=== PATIENT | male | born 1935 | race Caucasian/White ===

== ENCOUNTER 2016-07-15 07:10 | Outpatient (CLI) | payer MEDICARE, OTHER | END 2016-07-15 07:11 | disposition home or self-care (01) | DX: Z79.01 Long term (current) use of anticoagulants (principal); I48.91 Unspecified atrial fibrillation ==

== ENCOUNTER 2016-07-22 07:06 | Outpatient (CLI) | payer MEDICARE, OTHER | END 2016-07-22 07:07 | disposition home or self-care (01) | DX: I48.91 Unspecified atrial fibrillation (principal); Z79.01 Long term (current) use of anticoagulants ==

== ENCOUNTER 2016-07-29 07:01 | Outpatient (CLI) | payer MEDICARE, OTHER | END 2016-07-29 07:02 | disposition home or self-care (01) | DX: I48.91 Unspecified atrial fibrillation (principal); Z79.01 Long term (current) use of anticoagulants ==

== ENCOUNTER 2016-08-12 07:01 | Outpatient (CLI) | payer MEDICARE, OTHER | END 2016-08-12 07:02 | disposition home or self-care (01) | DX: I48.91 Unspecified atrial fibrillation (principal); Z79.01 Long term (current) use of anticoagulants ==

== ENCOUNTER 2016-08-26 07:04 | Outpatient (CLI) | payer MEDICARE, OTHER | END 2016-08-26 07:05 | disposition home or self-care (01) | DX: Z79.01 Long term (current) use of anticoagulants (principal); I48.91 Unspecified atrial fibrillation ==

== ENCOUNTER 2016-09-23 07:04 | Outpatient (CLI) | payer MEDICARE, OTHER | END 2016-09-23 07:05 | disposition home or self-care (01) | DX: I48.91 Unspecified atrial fibrillation (principal); Z79.01 Long term (current) use of anticoagulants ==

== ENCOUNTER 2016-10-07 07:02 | Outpatient (CLI) | payer MEDICARE, OTHER | END 2016-10-07 07:03 | disposition home or self-care (01) | DX: I48.91 Unspecified atrial fibrillation (principal); Z79.01 Long term (current) use of anticoagulants ==

== ENCOUNTER 2016-11-04 07:03 | Outpatient (CLI) | payer MEDICARE, OTHER | END 2016-11-04 07:04 | disposition home or self-care (01) | DX: I48.91 Unspecified atrial fibrillation (principal); Z79.01 Long term (current) use of anticoagulants ==

== ENCOUNTER 2016-11-06 07:05 | Outpatient (CLI) | payer MEDICARE, OTHER | END 2016-11-06 07:06 | disposition home or self-care (01) | DX: I48.91 Unspecified atrial fibrillation (principal); Z79.01 Long term (current) use of anticoagulants ==

== ENCOUNTER 2016-11-19 07:11 | Outpatient (CLI) | payer MEDICARE, OTHER | END 2016-11-19 07:12 | disposition home or self-care (01) | DX: I48.91 Unspecified atrial fibrillation (principal); Z79.01 Long term (current) use of anticoagulants ==

== ENCOUNTER 2016-12-02 07:08 | Outpatient (CLI) | payer MEDICARE, OTHER | END 2016-12-02 07:09 | disposition home or self-care (01) | LOC: LAB.F 07:08 | PROVIDERS: ATTEND Internal Medicine | DX: I48.91 Unspecified atrial fibrillation (principal); Z79.01 Long term (current) use of anticoagulants | CPT/HCPCS: 85610 ==

== ENCOUNTER 2016-12-23 07:04 | Outpatient (CLI) | payer MEDICARE, OTHER | END 2016-12-23 07:05 | disposition home or self-care (01) | LOC: LAB.F 07:04 | PROVIDERS: ATTEND Internal Medicine | DX: I48.91 Unspecified atrial fibrillation (principal); Z79.01 Long term (current) use of anticoagulants | CPT/HCPCS: 85610 ==

== ENCOUNTER 2017-01-06 07:06 | Outpatient (CLI) | payer MEDICARE, OTHER | END 2017-01-06 07:07 | disposition home or self-care (01) | LOC: LAB.F 07:06 | PROVIDERS: ATTEND Internal Medicine | DX: I48.91 Unspecified atrial fibrillation (principal); Z79.01 Long term (current) use of anticoagulants | CPT/HCPCS: 85610 ==

== ENCOUNTER 2017-02-03 07:06 | Outpatient (CLI) | payer MEDICARE, OTHER | END 2017-02-03 07:07 | disposition home or self-care (01) | LOC: LAB.F 07:06 | PROVIDERS: ATTEND Internal Medicine | DX: I48.91 Unspecified atrial fibrillation (principal); Z79.01 Long term (current) use of anticoagulants | CPT/HCPCS: 85610 ==

== ENCOUNTER 2017-02-17 07:10 | Outpatient (CLI) | payer MEDICARE, OTHER | END 2017-02-17 07:11 | disposition home or self-care (01) | LOC: LAB.F 07:10 | PROVIDERS: ATTEND Internal Medicine | DX: I48.91 Unspecified atrial fibrillation (principal); Z79.01 Long term (current) use of anticoagulants | CPT/HCPCS: 85610 ==

== ENCOUNTER 2017-03-10 07:18 | Outpatient (CLI) | payer MEDICARE, OTHER ==
[2017-03-10 11:47] LABS: CHOL/HDL RATIO 2.6 (<5.0); CHOLESTEROL 142 mg/dL; HDL CHOLESTEROL 54 mg/dL; LDL/HDL RATIO 1.4 (<3.6); TRIGLYCERIDES 60 mg/dL; VLDL CHOLESTEROL 12 mg/dL
== END 2017-03-10 07:19 | disposition home or self-care (01) ==
LOC: LAB.F 07:18
PROVIDERS: ATTEND Internal Medicine
DX: I48.91 Unspecified atrial fibrillation (principal); I25.10 Atherosclerotic heart disease of native coronary artery without angina pectoris; Z79.01 Long term (current) use of anticoagulants
CPT/HCPCS: 36415; 80061; 85610

== ENCOUNTER 2017-04-21 07:00 | Outpatient (CLI) | payer MEDICARE, OTHER | END 2017-04-21 07:01 | disposition home or self-care (01) | LOC: LAB.F 07:00 | PROVIDERS: ATTEND Internal Medicine | DX: I48.91 Unspecified atrial fibrillation (principal); Z79.01 Long term (current) use of anticoagulants | CPT/HCPCS: 85610 ==

== ENCOUNTER 2017-06-09 07:06 | Outpatient (CLI) | payer MEDICARE, OTHER | END 2017-06-09 07:07 | disposition home or self-care (01) | LOC: LAB.F 07:06 | PROVIDERS: ATTEND Internal Medicine | DX: I48.91 Unspecified atrial fibrillation (principal); Z79.01 Long term (current) use of anticoagulants | CPT/HCPCS: 85610 ==

== ENCOUNTER 2017-07-09 07:06 | Outpatient (CLI) | payer MEDICARE, OTHER | END 2017-07-09 07:07 | disposition home or self-care (01) | LOC: LAB.F 07:06 | PROVIDERS: ATTEND Internal Medicine | DX: I48.91 Unspecified atrial fibrillation (principal); Z79.01 Long term (current) use of anticoagulants ==

== ENCOUNTER 2017-07-21 07:04 | Outpatient (CLI) | payer MEDICARE, OTHER | END 2017-07-21 07:05 | disposition home or self-care (01) | LOC: LAB.F 07:04 | PROVIDERS: ATTEND Internal Medicine | DX: I48.91 Unspecified atrial fibrillation (principal); Z79.01 Long term (current) use of anticoagulants | CPT/HCPCS: 85610 ==

== ENCOUNTER 2017-07-24 08:34 | Outpatient (CLI) | payer MEDICARE, OTHER ==
--- NOTE | 2017-07-24 12:37 | CT Report ---
DATE OF SERVICE: 07/24/2017 CT OF SINUSES: 07/24/2017 CLINICAL INDICATION: Nasal congestion. TECHNIQUE: Axial CT images of the paranasal sinuses were obtained without intravenous contrast, following which sagittal and coronal reconstructions were performed. FINDINGS: There is complete opacification of the right maxillary sinus, ethmoid air cells, frontal sinus, and the majority of the sphenoid sinus. There is rightward deviation of the nasal septum. There is minimal mucosal thickening in the left ethmoid air cells and the inferior aspect of the left maxillary sinus. The left ostiomeatal unit is patent. The right ostiomeatal unit is occluded by soft tissue. The visualized orbital contents are unremarkable. IMPRESSION: EXTENSIVE RIGHT-SIDED SINUS DISEASE, WITH COMPLETE OPACIFICATION OF THE RIGHT MAXILLARY, ETHMOID, FRONTAL, AND SPHENOID SINUSES. In accordance with CT protocol optimization, one or more of the following dose reduction techniques were utilized for this exam: automated exposure control, adjustment of mA and/or KV based on patient size, or use of iterative reconstructive technique. TD: 07/24/2017 13:36
== END 2017-07-24 08:35 | disposition home or self-care (01) ==
LOC: DI 08:34
PROVIDERS: ATTEND Physician Assistant Medical
DX: J32.4 Chronic pansinusitis (principal)
CPT/HCPCS: 70486

== ENCOUNTER 2017-08-04 07:07 | Outpatient (CLI) | payer MEDICARE, OTHER | END 2017-08-04 07:08 | disposition home or self-care (01) | LOC: LAB.F 07:07 | PROVIDERS: ATTEND Internal Medicine | DX: I48.91 Unspecified atrial fibrillation (principal); Z79.01 Long term (current) use of anticoagulants | CPT/HCPCS: 85610 ==

== ENCOUNTER 2017-08-17 07:07 | Outpatient (CLI) | payer MEDICARE, OTHER | END 2017-08-17 07:08 | disposition home or self-care (01) | LOC: LAB.F 07:07 | PROVIDERS: ATTEND Internal Medicine | DX: I48.91 Unspecified atrial fibrillation (principal); Z79.01 Long term (current) use of anticoagulants | CPT/HCPCS: 85610 ==

== ENCOUNTER 2017-09-02 07:03 | Outpatient (CLI) | payer MEDICARE, OTHER | END 2017-09-02 07:04 | disposition home or self-care (01) | LOC: LAB.F 07:03 | PROVIDERS: ATTEND Internal Medicine | DX: I48.91 Unspecified atrial fibrillation (principal); Z79.01 Long term (current) use of anticoagulants | CPT/HCPCS: 85610 ==

== ENCOUNTER 2017-09-30 07:07 | Outpatient (CLI) | payer MEDICARE, OTHER ==
[2017-09-30 10:34] LABS: BASOPHILS % (AUTO) 0.3 %; EOSINOPHILS % (AUTO) 0.7 %; HGB - HEMOGLOBIN 14.7 g/dL (14.0-18.0); LYMPHOCYTES # (AUTO) 1.7 10^3/uL (1.5-3.5); LYMPHOCYTES % (AUTO) 26.7 %; MEAN CORPUSCULAR HEMOGLOBIN 34.1 pg (27.0-31.0); MEAN CORPUSCULAR HGB CONC 33.9 g/dL (32.0-36.0); MEAN CORPUSCULAR VOLUME 100.5 fL (80.0-94.0); MEAN PLATELET VOLUME 8.8 fL (7.4-11.4); MONOCYTES # (AUTO) 0.5 10^3/uL (0.0-1.0); MONOCYTES % (AUTO) 7.3 %; NEUTROPHILS # (AUTO) 4.2 10^3/uL (1.5-6.6); PLT - PLATELET COUNT 149 10^3/uL (130-450); RED CELL DISTRIBUTION WIDTH 13.9 % (12.0-15.0); WHITE BLOOD COUNT 6.5 x10^3/uL (4.8-10.8)
[2017-09-30 11:06] LABS: ALBUMIN 3.7 g/dL (3.2-5.5); ALBUMIN/GLOBULIN RATIO 1.3 (1.0-2.2); ALKALINE PHOSPHATASE 76 IU/L (42-121); ALT ALANINE AMINOTRANSFERASE 16 IU/L (10-60); AST ASPARTATE AMINOTRANSFERASE 23 IU/L (10-42); BILIRUBIN,TOTAL 1.1 mg/dL (0.2-1.0); BUN - BLOOD UREA NITROGEN 20 mg/dL (6-20); CALCIUM 9.3 mg/dL (8.5-10.3); CARBON DIOXIDE - CO2 26 mmol/L (21-32); CHLORIDE 107 mmol/L (101-111); CHOL/HDL RATIO 3.1 (<5.0); CHOLESTEROL 124 mg/dL; CREATININE 0.7 mg/dL (0.6-1.2); GFR - MDRD 108 (>89); GLUCOSE 103 mg/dL (70-100); HDL CHOLESTEROL 40 mg/dL; LDL CHOLESTEROL,CALCULATED 69 mg/dL; LDL/HDL RATIO 1.7 (<3.6); SODIUM 140 mmol/L (135-145); TOTAL PROTEIN 6.6 g/dL (6.7-8.2); VLDL CHOLESTEROL 15 mg/dL
== END 2017-09-30 07:08 | disposition home or self-care (01) ==
LOC: LAB.F 07:07
PROVIDERS: ATTEND Internal Medicine
DX: I25.10 Atherosclerotic heart disease of native coronary artery without angina pectoris (principal); C61 Malignant neoplasm of prostate; E78.5 Hyperlipidemia, unspecified; I48.91 Unspecified atrial fibrillation; Z79.01 Long term (current) use of anticoagulants
CPT/HCPCS: 36415; 80053; 80061; 83721; 84153; 85025; 85610

== ENCOUNTER 2017-11-06 14:00 | Outpatient (CLI) | payer MEDICARE, OTHER | END 2017-11-06 14:01 | disposition home or self-care (01) | LOC: LAB.F 14:00 | PROVIDERS: ATTEND Internal Medicine | DX: I48.91 Unspecified atrial fibrillation (principal); Z79.01 Long term (current) use of anticoagulants | CPT/HCPCS: 85610 ==

== ENCOUNTER 2017-11-19 11:06 | Outpatient (CLI) | payer MEDICARE, OTHER | END 2017-11-19 11:07 | disposition home or self-care (01) | LOC: DI 11:06 | PROVIDERS: ATTEND Internal Medicine Cardiovascular Disease | DX: I48.91 Unspecified atrial fibrillation (principal); I25.10 Atherosclerotic heart disease of native coronary artery without angina pectoris; I48.0 Paroxysmal atrial fibrillation; I51.7 Cardiomegaly | CPT/HCPCS: 93306 ==

== ENCOUNTER 2017-11-24 07:18 | Outpatient (CLI) | payer MEDICARE, OTHER | END 2017-11-24 07:19 | disposition home or self-care (01) | LOC: LAB.F 07:18 | PROVIDERS: ATTEND Internal Medicine | DX: I48.91 Unspecified atrial fibrillation (principal); Z79.01 Long term (current) use of anticoagulants | CPT/HCPCS: 85610 ==

== ENCOUNTER 2017-12-23 07:06 | Outpatient (CLI) | payer MEDICARE, OTHER | END 2017-12-23 07:07 | disposition home or self-care (01) | LOC: LAB.F 07:06 | PROVIDERS: ATTEND Internal Medicine | DX: I48.91 Unspecified atrial fibrillation (principal); Z79.01 Long term (current) use of anticoagulants | CPT/HCPCS: 85610 ==

== ENCOUNTER 2018-01-15 07:20 | Outpatient (CLI) | payer MEDICARE, OTHER ==
[2018-01-15 07:57] LABS: INR 4.2 (0.8-1.2); PT - PROTHROMBIN TIME 45.3 secs (9.9-12.6)
== END 2018-01-15 07:21 | disposition home or self-care (01) ==
LOC: LAB 07:20
PROVIDERS: ATTEND Internal Medicine
DX: I48.91 Unspecified atrial fibrillation (principal); Z79.01 Long term (current) use of anticoagulants
CPT/HCPCS: 36415; 85610

== ENCOUNTER 2018-01-28 07:05 | Outpatient (CLI) | payer MEDICARE, OTHER | END 2018-01-28 07:06 | disposition home or self-care (01) | LOC: LAB.F 07:05 | PROVIDERS: ATTEND Internal Medicine | DX: I48.91 Unspecified atrial fibrillation (principal); Z79.01 Long term (current) use of anticoagulants | CPT/HCPCS: 85610 ==

== ENCOUNTER 2018-02-15 07:09 | Outpatient (CLI) | payer MEDICARE, OTHER | END 2018-02-15 07:10 | disposition home or self-care (01) | LOC: LAB.F 07:09 | PROVIDERS: ATTEND Internal Medicine | DX: I48.91 Unspecified atrial fibrillation (principal); Z79.01 Long term (current) use of anticoagulants | CPT/HCPCS: 85610 ==

== ENCOUNTER 2018-03-03 07:06 | Outpatient (CLI) | payer MEDICARE, OTHER | END 2018-03-03 07:07 | disposition home or self-care (01) | LOC: LAB.F 07:06 | PROVIDERS: ATTEND Internal Medicine | DX: I48.91 Unspecified atrial fibrillation (principal); Z79.01 Long term (current) use of anticoagulants | CPT/HCPCS: 85610 ==

== ENCOUNTER 2018-03-18 07:04 | Outpatient (CLI) | payer MEDICARE, OTHER | END 2018-03-18 07:05 | disposition home or self-care (01) | LOC: LAB.F 07:04 | PROVIDERS: ATTEND Internal Medicine | DX: I48.91 Unspecified atrial fibrillation (principal); Z79.01 Long term (current) use of anticoagulants | CPT/HCPCS: 85610 ==

== ENCOUNTER 2018-04-27 07:06 | Outpatient (CLI) | payer MEDICARE, OTHER ==
[2018-04-27 10:57] LABS: BASOPHILS % (AUTO) 0.3 %; EOSINOPHILS % (AUTO) 0.5 %; HGB - HEMOGLOBIN 15.7 g/dL (14.0-18.0); LYMPHOCYTES # (AUTO) 1.8 10^3/uL (1.5-3.5); LYMPHOCYTES % (AUTO) 28.7 %; MEAN CORPUSCULAR HEMOGLOBIN 34.9 pg (27.0-31.0); MEAN CORPUSCULAR HGB CONC 34.9 g/dL (32.0-36.0); MEAN CORPUSCULAR VOLUME 99.9 fL (80.0-94.0); MEAN PLATELET VOLUME 8.4 fL (7.4-11.4); MONOCYTES # (AUTO) 0.5 10^3/uL (0.0-1.0); MONOCYTES % (AUTO) 7.3 %; NEUTROPHILS % (AUTO) 63.2 %; PLT - PLATELET COUNT 160 10^3/uL (130-450); RED BLOOD COUNT 4.49 10^6/uL (4.70-6.10); RED CELL DISTRIBUTION WIDTH 14.2 % (12.0-15.0); WHITE BLOOD COUNT 6.3 x10^3/uL (4.8-10.8)
[2018-04-27 11:35] LABS: CALCIUM 8.9 mg/dL (8.5-10.3); CREATININE 0.9 mg/dL (0.6-1.2)
== END 2018-04-27 07:07 | disposition home or self-care (01) ==
LOC: LAB.F 07:06
PROVIDERS: ATTEND Internal Medicine Cardiovascular Disease
DX: I48.91 Unspecified atrial fibrillation (principal); Z79.01 Long term (current) use of anticoagulants; I25.119 Atherosclerotic heart disease of native coronary artery with unspecified angina pectoris; R06.02 Shortness of breath
CPT/HCPCS: 36415; 80048; 85025; 85610

== ENCOUNTER 2018-06-08 07:06 | Outpatient (CLI) | payer MEDICARE, OTHER | END 2018-06-08 07:07 | disposition home or self-care (01) | LOC: LAB.F 07:06 | PROVIDERS: ATTEND Internal Medicine | DX: I48.91 Unspecified atrial fibrillation (principal); Z79.01 Long term (current) use of anticoagulants | CPT/HCPCS: 85610 ==

== ENCOUNTER 2018-06-16 09:10 | Outpatient (CLI) | payer MEDICARE, OTHER ==
--- NOTE | 2018-06-16 09:47 | XRAY Report ---
Reason: SHORTNESS OF BREATH Procedure Date: 06/16/2018 Accession Number: [id number] / [id number] Procedure: XR - Chest 2 View X-Ray CPT Code: 02886 FULL RESULT: EXAM: CHEST RADIOGRAPHY EXAM DATE: 06/16/2018 09:21 AM. CLINICAL HISTORY: Shortness of breath. COMPARISON: CHEST 2 VIEW PA/LAT 04/28/2016 10:21 AM. TECHNIQUE: 2 views. FINDINGS: Lungs/Pleura: There is subtle consolidation in the lingula. No pleural effusion. No pneumothorax. Normal volumes. Mediastinum: Status post median sternotomy with surgical clips in the region of the right hilum, likely status post CABG. The cardiomediastinal contour is otherwise stable with calcification of the aortic arch. Other: None. IMPRESSION: Subtle consolidation in the lingula may be due to atelectasis or airspace disease. RADIA
== END 2018-06-16 09:11 | disposition home or self-care (01) ==
LOC: DI 09:10
PROVIDERS: ATTEND Internal Medicine Cardiovascular Disease
DX: J18.1 Lobar pneumonia, unspecified organism (principal)
CPT/HCPCS: 71046

== ENCOUNTER 2018-06-22 07:07 | Outpatient (CLI) | payer MEDICARE, OTHER | END 2018-06-22 07:08 | disposition home or self-care (01) | LOC: LAB.F 07:07 | PROVIDERS: ATTEND Internal Medicine | DX: I48.91 Unspecified atrial fibrillation (principal); Z79.01 Long term (current) use of anticoagulants | CPT/HCPCS: 85610 ==

== ENCOUNTER 2018-07-28 07:08 | Outpatient (CLI) | payer MEDICARE, OTHER | END 2018-07-28 07:09 | disposition home or self-care (01) | LOC: LAB.F 07:08 | PROVIDERS: ATTEND Internal Medicine | DX: I48.91 Unspecified atrial fibrillation (principal); Z79.01 Long term (current) use of anticoagulants | CPT/HCPCS: 85610 ==

== ENCOUNTER 2018-08-25 08:52 | Outpatient (CLI) | payer MEDICARE, OTHER | END 2018-08-25 08:53 | disposition home or self-care (01) | LOC: LAB.F 08:52 | PROVIDERS: ATTEND Internal Medicine | DX: I48.91 Unspecified atrial fibrillation (principal); Z79.01 Long term (current) use of anticoagulants | CPT/HCPCS: 85610 ==

== ENCOUNTER 2018-10-12 07:14 | Outpatient (CLI) | payer MEDICARE, OTHER ==
[2018-10-12 17:55] LABS: ALBUMIN 3.8 g/dL (3.2-5.5); ALBUMIN/GLOBULIN RATIO 1.5 (1.0-2.2); ALKALINE PHOSPHATASE 61 IU/L (42-121); ALT ALANINE AMINOTRANSFERASE 14 IU/L (10-60); AST ASPARTATE AMINOTRANSFERASE 24 IU/L (10-42); BUN - BLOOD UREA NITROGEN 14 mg/dL (6-20); CARBON DIOXIDE - CO2 19 mmol/L (21-32); CHLORIDE 103 mmol/L (101-111); CHOL/HDL RATIO 2.6 (<5.0); CHOLESTEROL 151 mg/dL; CREATININE 0.7 mg/dL (0.6-1.2); GFR - MDRD 107 (>89); GLUCOSE 95 mg/dL (70-100); HDL CHOLESTEROL 59 mg/dL; LDL CHOLESTEROL,CALCULATED 76 mg/dL; LDL/HDL RATIO 1.3 (<3.6); SODIUM 134 mmol/L (135-145); TOTAL PROTEIN 6.3 g/dL (6.7-8.2); VLDL CHOLESTEROL 16 mg/dL
[2018-10-12 18:04] LABS: PSA TOTAL 0.016 ng/mL (0.000-2.000)
[2018-10-12 18:21] LABS: PSA FREE < 0.005 ng/mL (0.16-2.81); PSA FREE % 31 % (25-100)
== END 2018-10-12 07:15 | disposition home or self-care (01) ==
LOC: LAB.F 07:14
PROVIDERS: ATTEND Internal Medicine
DX: E78.5 Hyperlipidemia, unspecified (principal); Z85.46 Personal history of malignant neoplasm of prostate; Z79.01 Long term (current) use of anticoagulants
CPT/HCPCS: 36415; 80053; 80061; 83721; 84153; 84154; 85027; 85610

== ENCOUNTER 2018-10-26 07:04 | Outpatient (CLI) | payer MEDICARE, OTHER | END 2018-10-26 07:05 | disposition home or self-care (01) | LOC: LAB.F 07:04 | PROVIDERS: ATTEND Internal Medicine | DX: Z79.01 Long term (current) use of anticoagulants (principal) | CPT/HCPCS: 85610 ==

== ENCOUNTER 2018-11-15 08:39 | Outpatient (CLI) | payer MEDICARE, OTHER | END 2018-11-15 08:40 | disposition home or self-care (01) | LOC: LAB.F 08:39 | PROVIDERS: ATTEND Internal Medicine | DX: Z79.01 Long term (current) use of anticoagulants (principal) | CPT/HCPCS: 85610 ==

== ENCOUNTER 2018-11-23 07:12 | Outpatient (CLI) | payer MEDICARE, OTHER | END 2018-11-23 07:13 | disposition home or self-care (01) | LOC: LAB.F 07:12 | PROVIDERS: ATTEND Internal Medicine | DX: Z79.01 Long term (current) use of anticoagulants (principal) | CPT/HCPCS: 85610 ==

== ENCOUNTER 2018-12-01 07:17 | Outpatient (CLI) | payer MEDICARE, OTHER | END 2018-12-01 07:18 | disposition home or self-care (01) | LOC: LAB.F 07:17 | PROVIDERS: ATTEND Internal Medicine | DX: Z79.01 Long term (current) use of anticoagulants (principal) | CPT/HCPCS: 85610 ==

== ENCOUNTER 2018-12-14 07:00 | Outpatient (CLI) | payer MEDICARE, OTHER | END 2018-12-14 07:01 | disposition home or self-care (01) | LOC: LAB.F 07:00 | PROVIDERS: ATTEND Internal Medicine | DX: Z79.01 Long term (current) use of anticoagulants (principal) | CPT/HCPCS: 85610 ==

== ENCOUNTER 2019-01-18 09:37 | Outpatient (CLI) | payer MEDICARE, OTHER | END 2019-01-18 09:38 | disposition home or self-care (01) | LOC: LAB.S 09:37 | PROVIDERS: ATTEND Internal Medicine | DX: Z79.01 Long term (current) use of anticoagulants (principal) | CPT/HCPCS: 85610 ==

== ENCOUNTER 2019-01-31 07:05 | Outpatient (CLI) | payer MEDICARE, OTHER | END 2019-01-31 07:06 | disposition home or self-care (01) | LOC: LAB.S 07:05 | PROVIDERS: ATTEND Internal Medicine | DX: Z79.01 Long term (current) use of anticoagulants (principal); I48.91 Unspecified atrial fibrillation | CPT/HCPCS: 85610 ==

== ENCOUNTER 2019-03-01 06:52 | Outpatient (CLI) | payer MEDICARE, OTHER | END 2019-03-01 06:53 | disposition home or self-care (01) | LOC: LAB.S 06:52 | PROVIDERS: ATTEND Internal Medicine | DX: Z79.01 Long term (current) use of anticoagulants (principal) | CPT/HCPCS: 85610 ==

== ENCOUNTER 2019-03-18 06:58 | Outpatient (CLI) | payer MEDICARE, OTHER | END 2019-03-18 06:59 | disposition home or self-care (01) | LOC: LAB.S 06:58 | PROVIDERS: ATTEND Internal Medicine | DX: Z79.01 Long term (current) use of anticoagulants (principal) | CPT/HCPCS: 85610 ==

== ENCOUNTER 2019-03-29 07:02 | Outpatient (CLI) | payer MEDICARE, OTHER ==
[2019-03-29 10:02] LABS: CREATININE 0.8 mg/dL (0.6-1.2)
== END 2019-03-29 07:03 | disposition home or self-care (01) ==
LOC: LAB.S 07:02
PROVIDERS: ATTEND Internal Medicine
DX: I25.5 Ischemic cardiomyopathy (principal); Z79.01 Long term (current) use of anticoagulants
CPT/HCPCS: 36415; 80048; 85610

== ENCOUNTER 2019-04-27 06:58 | Outpatient (CLI) | payer MEDICARE, OTHER ==
[2019-04-27 11:24] LABS: CALCIUM 9.1 mg/dL (8.5-10.3); CREATININE 0.8 mg/dL (0.6-1.2)
== END 2019-04-27 06:59 | disposition home or self-care (01) ==
LOC: LAB.S 06:58
PROVIDERS: ATTEND Internal Medicine
DX: Z79.01 Long term (current) use of anticoagulants (principal); I50.22 Chronic systolic (congestive) heart failure
CPT/HCPCS: 36415; 80048; 85610

== ENCOUNTER 2019-06-16 07:03 | Outpatient (CLI) | payer MEDICARE, OTHER | END 2019-06-16 07:04 | disposition home or self-care (01) | LOC: LAB.S 07:03 | PROVIDERS: ATTEND Internal Medicine | DX: Z79.01 Long term (current) use of anticoagulants (principal) | CPT/HCPCS: 85610 ==

== ENCOUNTER 2019-07-21 06:59 | Outpatient (CLI) | payer MEDICARE, OTHER ==
[2019-07-21 10:05] LABS: CALCIUM 8.9 mg/dL (8.5-10.3); CREATININE 0.8 mg/dL (0.6-1.2)
== END 2019-07-21 07:00 | disposition home or self-care (01) ==
LOC: LAB.S 06:59
PROVIDERS: ATTEND Internal Medicine Cardiovascular Disease
DX: Z79.01 Long term (current) use of anticoagulants (principal); I50.22 Chronic systolic (congestive) heart failure
CPT/HCPCS: 36415; 80048; 85610

== ENCOUNTER 2019-08-03 06:56 | Outpatient (CLI) | payer MEDICARE, OTHER | END 2019-08-03 06:57 | disposition home or self-care (01) | LOC: LAB.S 06:56 | PROVIDERS: ATTEND Internal Medicine | DX: Z79.01 Long term (current) use of anticoagulants (principal) | CPT/HCPCS: 85610 ==

== ENCOUNTER 2019-09-06 20:55 | Outpatient (CLI) | payer MEDICARE, OTHER | END 2019-09-06 20:56 | disposition EMS.NT | LOC: EMS 20:55 | PROVIDERS: ATTEND Surgery | DX: S01.81XA Laceration without foreign body of other part of head, initial encounter (principal); W01.198A Fall on same level from slipping, tripping and stumbling with subsequent striking against other object, initial encounter; Y92.000 Kitchen of unspecified non-institutional (private) residence as the place of occurrence of the external cause ==

== ENCOUNTER 2019-09-06 21:41 | Emergency (ER) | payer MEDICARE, OTHER ==
[2019-09-06 22:24] LABS: BASOPHILS % (AUTO) 0.5 %; EOSINOPHILS # (AUTO) 0.1 10^3/uL (0.0-0.7); EOSINOPHILS % (AUTO) 0.6 %; HGB - HEMOGLOBIN 14.3 g/dL (14.0-18.0); LYMPHOCYTES # (AUTO) 2.3 10^3/uL (1.5-3.5); LYMPHOCYTES % (AUTO) 25.8 %; MEAN CORPUSCULAR HEMOGLOBIN 34.4 pg (27.0-31.0); MEAN CORPUSCULAR HGB CONC 34.5 g/dL (32.0-36.0); MEAN CORPUSCULAR VOLUME 99.8 fL (80.0-94.0); MEAN PLATELET VOLUME 9.8 fL (7.4-11.4); MONOCYTES # (AUTO) 0.5 10^3/uL (0.0-1.0); MONOCYTES % (AUTO) 5.1 %; NEUTROPHILS % (AUTO) 67.7 %; PLT - PLATELET COUNT 174 10^3/uL (130-450); RED BLOOD COUNT 4.16 10^6/uL (4.70-6.10); RED CELL DISTRIBUTION WIDTH 13.7 % (12.0-15.0); WHITE BLOOD COUNT 8.8 x10^3/uL (4.8-10.8)
[2019-09-06 22:29] LABS: INR 2.6 (0.8-1.2); PT - PROTHROMBIN TIME 28.5 secs (9.9-12.6)
[2019-09-06 22:35] LABS: ALBUMIN 3.8 g/dL (3.2-5.5); ALBUMIN/GLOBULIN RATIO 1.5 (1.0-2.2); BILIRUBIN,TOTAL 0.9 mg/dL (0.2-1.0); CALCIUM 9.4 mg/dL (8.5-10.3); CREATININE 0.7 mg/dL (0.6-1.2); TOTAL PROTEIN 6.4 g/dL (6.7-8.2)
--- NOTE | 2019-09-06 23:25 | CT Report ---
Reason: FALL, HEAD INJURY Procedure Date: 09/06/2019 Accession Number: [id number] / [id number] Procedure: CT - HEAD WO CPT Code: Final Report FULL RESULT: EXAM: CT HEAD EXAM DATE: 09/06/2019 10:46 PM. CLINICAL HISTORY: FALL, HEAD INJURY. COMPARISON: CT HEAD OR BRAIN WO IV CONTRAST 04/02/2019 2:27 PM. TECHNIQUE: Multiaxial CT images were obtained from the foramen magnum to the vertex. Reformats: Sagittal and coronal. IV contrast: None. In accordance with CT protocol optimization, one or more of the following dose reduction techniques were utilized for this exam: automated exposure control, adjustment of mA and/or KV based on patient size, or use of iterative reconstructive technique. FINDINGS: Parenchyma: No intraparenchymal hemorrhage. No evidence of mass, midline shift, or CT findings of acute infarction. Reid-white differentiation is distinct. Diffuse chronic microangiopathic white matter changes are evident. Extraaxial Spaces: Normal for age. No subdural or epidural collections identified. Ventricles: The ventricles and cortical sulci are enlarged, consistent with age-related tissue loss. Sinuses and orbits: Imaged paranasal sinuses, orbits, and mastoids show no significant abnormality. Bones: No evidence of fracture or calvarial defect. Other: None. IMPRESSION: Generalized age-related cortical atrophic changes without evidence of acute intracranial abnormality. RADIA
[2019-09-06] MEDS ORDERED: LIDOCAINE 2%-EPI 1:100000 20 ML MDV SUBQ STA (23:36)
--- NOTE | 2019-09-07 00:42 | ED Physician Documentation ---
History of Present Illness - Stated complaint Stated Complaint: HEAD LAC - Chief complaint Chief Complaint: Trauma Hd/Nk - History obtained from History obtained from: Patient, Family - History of Present Illness Timing: Prior to arrival - Additonal information Additional information: 84 YEAR OLD MALE WHO HAS A HX OF ATRIAL FIBRILLATION ON COUMADIN WHO PRESENTS TO THE EMERGENCY DEPARTMENT WITH A HEAD INJURY AND FOREHEAD LACERATIONS. HE REPORTED THAT HE SLIPPED AND FELL. HE DENIES LOSS OF CONSCIOUSNESS. HE DENIES ANY NAUSEA, VOMITING, NUMBNESS, TINGLING OR WEAKNESS. HE DENIES ANY NECK PAIN, CHEST PAIN, SHORTNESS OF BREATH. TETANUS STATUS WAS UNKNOWN. HE DRINKS ALCOHOL REGULARLY. Review of Systems Constitutional: denies: Fever, Chills Nose: denies: Rhinorrhea / runny nose, Congestion Throat: denies: Dental pain / toothache Cardiac: denies: Chest pain / pressure, Palpitations Respiratory: denies: Dyspnea GI: denies: Abdominal Pain, Nausea, Vomiting Skin: reports: Laceration (s) Musculoskeletal: denies: Neck pain, Back pain, Extremity pain Neurologic: denies: Generalized weakness, Focal weakness, Numbness PD PAST MEDICAL HISTORY - Past Medical History Cardiovascular: Hypertension, High cholesterol, Coronary artery disease, [place] Respiratory: Shortness of breath HEENT: Chronic hearing loss Musculoskeletal: Osteoarthritis - Past Surgical History Past Surgical History: Yes General: Appendectomy, Colonoscopy Cardiovascular: CABG, Coronary stent HEENT: Cataracts, Tonsil/Adenoidectomy - Present Medications Home Medications: Ambulatory Orders Medication Instructions Recorded Confirmed Carvedilol 12.5 mg PO BID 01/05/13 01/12/14 Nitroglycerin [Nitrostat] 0.4 mg SL PRN 01/05/13 01/12/14 Atorvastatin Calcium [Lipitor] 80 mg PO DAILY 01/12/14 01/12/14 Lisinopril [Zestril] 2.5 mg PO BID 01/12/14 01/12/14 - Allergies Allergies/Adverse Reactions: Allergies Allergy/AdvReac Type Severity Reaction Status Date / Time No Known Drug Allergies Allergy Verified 01/05/13 13:25 - Social History Does the pt smoke?: No Smoking Status: Never smoker Does the pt drink ETOH?: No Does the pt have substance abuse?: No PD ED PE NORMAL - Vitals Vital signs reviewed: Yes - General General: Alert and oriented X 3 - HEENT HEENT: PERRL, EOMI, Other (2 LINEAR VERTIAL LACERATIONS NOTE ON FOR HEADACE. ONE WAS 5 CM IN LENGTH AND ANOTHER WAS 3 CM IN LENGTH) - Neck Neck: Supple, no meningeal sign - Cardiac Cardiac: Other (REGULAR RATE) - Respiratory Respiratory: No respiratory distress, Clear bilaterally - Abdomen Abdomen: Normal bowel sounds, Soft - Extremities Extremities: No deformity, No tenderness to palpate - Neuro Neuro: Alert and oriented X 3, mixologist 2-12 intact, No motor deficit, No sensory deficit, Normal speech Eye Opening: Spontaneous Motor: Obeys Commands Verbal: Oriented GCS Score: 15 Results - Vitals Vitals: Oxygen O2 Source Room air - Labs Labs: Laboratory Tests 09/06/19 09/06/19 09/06/19 22:19 22:19 22:19 WBC 8.8 RBC 4.16 L Hgb 14.3 Hct 41.5 L MCV 99.8 H MCH 34.4 H MCHC 34.5 RDW 13.7 Plt Count 174 MPV 9.8 Neut # (Auto) 6.0 Lymph # (Auto) 2.3 [place] # (Auto) 0.5 Eos # (Auto) 0.1 Baso # (Auto) 0.0 Absolute Nucleated RBC 0.00 Nucleated RBC % 0.0 PT 28.5 H INR 2.6 H Sodium 139 Potassium 3.7 Chloride 103 Carbon Dioxide 24 Anion Gap 12.0 BUN 13 Creatinine 0.7 Estimated GFR (MDRD) 107 Glucose 96 Calcium 9.4 Total Bilirubin 0.9 AST 23 ALT 14 Alkaline Phosphatase 72 Total Protein 6.4 L Albumin 3.8 Globulin 2.6 Albumin/Globulin Ratio 1.5 PD MEDICAL DECISION MAKING - ED course Complexity details: re-evaluated patient, d/w patient, d/w family ED course: 84 YEAR OLD MALE PRESENTS TO THE EMERGENCY DEPARTMENT WITH A HEAD INJURY WITHOUT LOSS OF CONSCIOUSNESS. HE HAS 2 FULL THICKNESS LACERATIONS TO HIS FOREHEAD. AFTER OBTAINING CONSENT FROM THE PATIENT, WOUND WAS PREPPED IN STERILE FASHION. A TOTAL OF 5 ML OF 1% LIDOCAINE WITH EPINEPHRINE WAS USED TO ANESTHETIZE THE AREA. WOUND WAS CLEANED WITH SALINE. NO FOREIGN BODIES WERE IDENTIFIED. THE ENTIRE WOUND WAS VISUALIZED 5-0 PROLENE SUTURES WERE PLACED TO APPROXIMATE BOTH WOUNDS. PATIENT TOLERATED THE PROCEDURE WITHOUT IMMEDIATE COMPLICATIONS. I RECOMMENDED WOUND RECHECK AND SUTURE REMOVAL IN 5-[address] HEAD DID NOT SHOW INTRACRANIAL HEMORRHAGE OR SKULL FRACTURE. INR WAS WITHIN THERAPEUTIC RANGE. PATIENT REMAINED NEUROLOGICALLY INTACT. PATIENT WAS DISCHARGED IN STABLE CONDITION. Departure - Departure Disposition: 01 Home, Self Care Clinical Impression: Facial laceration, Head injury Condition: Stable Instructions: ED Head Injury Closed, ED Laceration Facial Sutr Tape Follow-Up: Abelardo Massey MD [Primary Care Provider] - Within 1 week Comments: PLEASE FOLLOW UP WITH YOUR DOCTOR IN 5-7 DAYS FOR SUTURE REMOVAL. PLEASE APPLY ANTIBIOTIC OINTMENT TWICE A DAY TO THE WOUND UNTIL IT HEALS. YOU MAY SHOWER TOMORROW. PLEASE RETURN TO THE EMERGENCY DEPARTMENT IF YOU DEVELOP A SEVERE HEADACHE, NAUSEA, VOMITING CONFUSION OR ANY NEW OR CONCERNING SYMPTOMS. Discharge Date/Time: 09/07/19 00:56
[2019-09-07] MEDS ORDERED: BACITRACIN ZINC OINT 1 PACKET TOP STA (00:45)
[2019-09-07 00:51] VITALS: BP 111/73
== END 2019-09-07 00:56 | disposition home or self-care (01) ==
LOC: ED 21:41
DX: S01.81XA Laceration without foreign body of other part of head, initial encounter (principal); S09.90XA Unspecified injury of head, initial encounter; W01.0XXA Fall on same level from slipping, tripping and stumbling without subsequent striking against object, initial encounter; Y93.G3 Activity, cooking and baking; I48.91 Unspecified atrial fibrillation; Z79.01 Long term (current) use of anticoagulants; I10 Essential (primary) hypertension
CPT/HCPCS: 12015; 36415; 70450; 80053; 85025; 85610; 99284; A9270

== ENCOUNTER 2019-09-20 06:59 | Outpatient (CLI) | payer MEDICARE, OTHER | END 2019-09-20 07:00 | disposition home or self-care (01) | LOC: LAB.S 06:59 | PROVIDERS: ATTEND Internal Medicine | DX: Z79.01 Long term (current) use of anticoagulants (principal) | CPT/HCPCS: 85610 ==

== ENCOUNTER 2019-10-25 08:00 | Outpatient (CLI) | payer MEDICARE, OTHER | END 2019-10-25 23:59 | disposition home or self-care (01) | LOC: LAB.WCP 08:00 | PROVIDERS: ATTEND Internal Medicine | DX: I48.91 Unspecified atrial fibrillation (principal); Z79.01 Long term (current) use of anticoagulants ==

== ENCOUNTER 2019-11-08 08:00 | Outpatient (CLI) | payer MEDICARE, OTHER | END 2019-11-08 23:59 | disposition home or self-care (01) | LOC: LAB.WCP 08:00 | PROVIDERS: ATTEND Internal Medicine | DX: I48.91 Unspecified atrial fibrillation (principal) ==

== ENCOUNTER 2020-01-01 08:57 | Emergency (ER) | payer MEDICARE, OTHER ==
--- NOTE | 2020-01-01 09:53 | ED Physician Documentation ---
History of Present Illness - Stated complaint Stated Complaint: COUGH/SWEATING - Chief complaint Chief Complaint: General - History obtained from History obtained from: Patient, Family - Additonal information Additional information: 84-year-old gentleman with history of coronary disease became acutely ill last night with coughing fits. He has not been short of breath and denies chest pain. The cough is productive of clear sputum. He is also had diarrhea. has not been sick. He is feeling better now than he did last night. Review of Systems Constitutional: reports: Chills, Sweats. denies: Fever Ears: denies: Drainage/discharge Nose: denies: Rhinorrhea / runny nose, Congestion Throat: denies: Sore throat Cardiac: denies: Chest pain / pressure, Palpitations, Pedal edema, Calf pain Respiratory: reports: Cough. denies: Dyspnea GI: denies: Abdominal Pain PD PAST MEDICAL HISTORY - Past Medical History Past Medical History: Yes Cardiovascular: Hypertension, High cholesterol, Coronary artery disease, [place], Atrial fibrillation Respiratory: Shortness of breath Endocrine/Autoimmune: None GI: GERD : None HEENT: Chronic hearing loss Psych: None Musculoskeletal: Osteoarthritis Derm: None - Past Surgical History Past Surgical History: Yes General: Appendectomy, Colonoscopy Cardiovascular: CABG, Coronary stent HEENT: Cataracts, Tonsil/Adenoidectomy - Present Medications Home Medications: Ambulatory Orders Medication Instructions Recorded Confirmed Carvedilol 12.5 mg PO BID 01/05/13 01/12/14 Nitroglycerin [Nitrostat] 0.4 mg SL PRN 01/05/13 01/12/14 Atorvastatin Calcium [Lipitor] 80 mg PO DAILY 01/12/14 01/12/14 Lisinopril [Zestril] 2.5 mg PO BID 01/12/14 01/12/14 guaiFENesin/CODEINE [Robitussin AC] 5 - 10 ml PO Q6H PRN #120 ml 01/01/20 - Allergies Allergies/Adverse Reactions: Allergies Allergy/AdvReac Type Severity Reaction Status Date / Time No Known Drug Allergies Allergy Verified 01/01/20 09:05 - Social History Does the pt smoke?: No Smoking Status: Former smoker Does the pt drink ETOH?: Yes ETOH Use: Liquor Does the pt have substance abuse?: No - Immunizations Immunizations are current?: Yes PD ED PE NORMAL - Vitals Vital signs reviewed: Yes - General General: Alert and oriented X 3, No acute distress - HEENT HEENT: PERRL, EOMI - Neck Neck: Supple, no meningeal sign, No bony TTP - Cardiac Cardiac: Other (Irregularly irregular with a loud S2 but no murmur) - Respiratory Respiratory: No respiratory distress, Clear bilaterally - Abdomen Abdomen: Non tender - Derm Derm: Normal color, Warm and dry - Extremities Extremities: No edema, No calf tenderness / cord - Neuro Neuro: Alert and oriented X 3, Normal speech Results - Vitals Vitals: Vital Signs - 24 hr 01/01/20 01/01/20 01/01/20 09:05 09:17 10:06 Temperature 36.2 C L Heart Rate 113 H 89 85 Respiratory 16 20 22 Rate Blood Pressure 99/75 102/77 100/71 O2 Saturation 98 97 95 Oxygen O2 Source Room air - EKG (time done) 0924 Rate: Rate (enter#) (106) Rhythm: Sinus tachycardia (Frequent ectopy, both supraventricular and ventricular) [place]: LAD Ischemia: Non specific changes. No: ST elevation c/w ischemia, ST depression Computer interpretation: Agree with computer - Labs Labs: Laboratory Tests 01/01/20 01/01/20 01/01/20 09:35 09:35 09:35 WBC 9.9 RBC 4.37 L Hgb 15.1 Hct 43.7 MCV 100.0 H MCH 34.6 H MCHC 34.6 RDW 13.0 Plt Count 139 MPV 11.1 Neut # (Auto) 8.4 H Lymph # (Auto) 0.9 L [place] # (Auto) 0.5 Eos # (Auto) 0.0 Baso # (Auto) 0.0 Absolute Nucleated RBC 0.00 Nucleated RBC % 0.0 PT INR Sodium 134 L Potassium 4.1 Chloride 100 L Carbon Dioxide 24 Anion Gap 10.0 BUN 17 Creatinine 0.8 Estimated GFR (MDRD) 92 Glucose 157 H Lactic Acid 1.9 Calcium 8.9 Total Bilirubin 1.9 H AST 23 ALT 16 Alkaline Phosphatase 64 Total Protein 6.4 L Albumin 3.7 Globulin 2.7 Albumin/Globulin Ratio 1.4 Lipase 38 01/01/20 09:35 WBC RBC Hgb Hct MCV MCH MCHC RDW Plt Count MPV Neut # (Auto) Lymph # (Auto) [place] # (Auto) Eos # (Auto) Baso # (Auto) Absolute Nucleated RBC Nucleated RBC % PT 26.8 H INR 2.5 H Sodium Potassium Chloride Carbon Dioxide Anion Gap BUN Creatinine Estimated GFR (MDRD) Glucose Lactic Acid Calcium Total Bilirubin AST ALT Alkaline Phosphatase Total Protein Albumin Globulin Albumin/Globulin Ratio Lipase PD MEDICAL DECISION MAKING - ED course ED course: 84-year-old gentleman had a cough and sweats last night, now feeling better. His lungs are clear. His chest x-ray is normal and the remainder of his work-up shows nothing too concerning. Coronavirus test is pending on discharge. I do not see any indication for antibiotics but was given close return precautions. Departure - Departure Disposition: Home, Self Care Clinical Impression: Cough, Adequate anticoagulation on anticoagulant therapy Condition: Good Record reviewed to determine appropriate education?: Yes Instructions: ED Upper Resp Infec No Abx Tx Prescriptions: guaiFENesin/CODEINE [Robitussin AC] 5 - 10 ml PO Q6H PRN #120 ml PRN Reason: Cough Comments: No pneumonia next, your INR today is perfect at 2.5. Return for new or worsening symptoms. If the cough is bad you can take the codeine cough syrup. But do not drink or drive with it. Return also if you develop a fever. Follow- up with your doctor in 2 to 3 days for recheck.
[2020-01-01 10:00] LABS: BASOPHILS % (AUTO) 0.3 %; EOSINOPHILS % (AUTO) 0.1 %; HGB - HEMOGLOBIN 15.1 g/dL (14.0-18.0); LYMPHOCYTES # (AUTO) 0.9 10^3/uL (1.5-3.5); LYMPHOCYTES % (AUTO) 8.9 %; MEAN CORPUSCULAR HEMOGLOBIN 34.6 pg (27.0-31.0); MEAN CORPUSCULAR HGB CONC 34.6 g/dL (32.0-36.0); MEAN PLATELET VOLUME 11.1 fL (7.4-11.4); MONOCYTES # (AUTO) 0.5 10^3/uL (0.0-1.0); MONOCYTES % (AUTO) 5.1 %; NEUTROPHILS # (AUTO) 8.4 10^3/uL (1.5-6.6); NEUTROPHILS % (AUTO) 85.3 %; PLT - PLATELET COUNT 139 10^3/uL (130-450); RED BLOOD COUNT 4.37 10^6/uL (4.70-6.10); WHITE BLOOD COUNT 9.9 x10^3/uL (4.8-10.8)
--- NOTE | 2020-01-01 10:04 | XRAY Report ---
PROCEDURE: Chest 1 View X-Ray INDICATIONS: cough TECHNIQUE: One view of the chest was acquired. COMPARISON: Chest x-ray 06/16/2018. FINDINGS: Surgical changes and devices: Sternotomy and CABG. Lungs and pleura: No pleural effusions or pneumothorax. Lungs are clear. Mediastinum: Mediastinal contours appear normal. Heart size is normal. Bones and chest wall: No suspicious bony lesions. Overlying soft tissues appear unremarkable. IMPRESSION: No acute cardiopulmonary disease. Reviewed by: Daniel Whyte MD on 01/01/2020 10:02 AM PDT Approved by: Daniel Whyte MD on 01/01/2020 10:02 AM PDT Station ID: [id number]
[2020-01-01 10:07] VITALS: BP 100/71
[2020-01-01 10:08] LABS: INR 2.5 (0.8-1.2); PT - PROTHROMBIN TIME 26.8 secs (9.9-12.6)
[2020-01-01 10:12] LABS: ALBUMIN 3.7 g/dL (3.2-5.5); ALBUMIN/GLOBULIN RATIO 1.4 (1.0-2.2); BILIRUBIN,TOTAL 1.9 mg/dL (0.2-1.0); CALCIUM 8.9 mg/dL (8.5-10.3); CREATININE 0.8 mg/dL (0.6-1.2); TOTAL PROTEIN 6.4 g/dL (6.7-8.2)
== END 2020-01-01 10:29 | disposition home or self-care (01) ==
LOC: ED 08:57
DX: R05 Cough (principal); R61 Generalized hyperhidrosis; R19.7 Diarrhea, unspecified; Z20.828 Contact with and (suspected) exposure to other viral communicable diseases; I49.3 Ventricular premature depolarization; Z79.01 Long term (current) use of anticoagulants; I48.91 Unspecified atrial fibrillation; I10 Essential (primary) hypertension; I25.10 Atherosclerotic heart disease of native coronary artery without angina pectoris; Z95.1 Presence of aortocoronary bypass graft; Z87.891 Personal history of nicotine dependence
CPT/HCPCS: 36415; 71045; 80053; 83605; 83690; 85025; 85610; 93005; 99284; U0004; 81599

== ENCOUNTER 2020-01-31 06:55 | Outpatient (CLI) | payer MEDICARE, OTHER | END 2020-01-31 06:56 | disposition home or self-care (01) | LOC: LAB.S 06:55 | PROVIDERS: ATTEND Internal Medicine | DX: Z79.01 Long term (current) use of anticoagulants (principal) | CPT/HCPCS: 85610 ==

== ENCOUNTER 2020-02-02 18:44 | Outpatient (CLI) | payer MEDICARE, OTHER | END 2020-02-02 18:45 | disposition critical access hospital (66) | LOC: EMS 18:44 | PROVIDERS: ATTEND Surgery | DX: I95.9 Hypotension, unspecified (principal); T14.8XXA Other injury of unspecified body region, initial encounter; W19.XXXA Unspecified fall, initial encounter; Y92.008 Other place in unspecified non-institutional (private) residence as the place of occurrence of the external cause; Z91.81 History of falling | CPT/HCPCS: A0425; A0427 ==